=== PATIENT | female | born 2000 | race Caucasian/White ===

== ENCOUNTER 2018-09-14 18:08 | Emergency (ER) | payer OTHER ==
[2018-09-14 19:37] LABS: #Eosinphils 0.1 thou/uL (0.0-0.7); #Lymphocytes 1.7 thou/uL (1.20-3.40); #Monocytes 0.5 thou/uL (0.11-0.59); #Neutrophils 3.7 thou/uL (1.40-6.50); %Basophils 0.4 % (0.0-1.0); %Lymphocytes 28.4 % (28.0-48.0); %Monocytes 8.2 % (0.0-4.0); Hemoglobin 14.7 g/dL (12.0-16.0); Mean Corpuscular HGB CONC 33.6 g/dL (32.0-36.0); Mean Corpuscular Hemoglobin 32.7 pg (25.0-35.0); Mean Corpuscular Volume 97.3 fL (78.0-98.0); Platelet Count 204 thou/uL (130-400); Red Blood Cell (RBC) Count 4.49 mill/uL (4.00-5.20)
[2018-09-14 19:55] LABS: ALT (SGPT) 11 U/L (8-55); AST (SGOT) 17 U/L (5-34); Alkaline Phosphatase 68 U/L (40-150); Anion Gap 12 mmol/L (10-20); BUN (Urea Nitrogen) 8 mg/dL (7.0-18.7); Bilirubin, Total 0.3 mg/dL (0.2-1.2); Calc. Creatinine Clearance 0 mL/min (70-130); Carbon Dioxide 28 mmol/L (22-29); Chloride 104 mmol/L (98-107); Estimated GFR-MDRD 88; Globulin 3.4 g/dL (2.4-3.5); Glucose 85 mg/dL (70-105); Potassium 3.8 mmol/L (3.5-5.1); Protein, Total 8.4 g/dL (6.0-8.3); Sodium 140 mmol/L (136-145)
[2018-09-14 20:19] LABS: Bilirubin Negative (Negative); Blood, Urine Negative (Negative); Clarity CLEAR (Clear); Glucose, Urine (Dipstick) Negative (Negative); Leukocyte Negative (Negative); Nitrite Negative (Negative); Protein, Urine (Dipstick) Negative (Neg-Trace); Specific Gravity, Urine 1.005 (1.002-1.036); Urobilinogen 0.2 mg/dL (0.2-1.0)
[2018-09-14 20:28] LABS: Pregnancy Test - Urine (BHCG) Negative (Negative); Pregu Control Background? CLEAR/WHITE (CLR/WHITE); Pregu Control Bar Appear? YES (CONTROL BAR); Specific Gravity 1.005 (1.002-1.036)
== END 2018-09-14 20:00 | disposition home or self-care (01) ==
LOC: ERS 18:08
DX: R55 Syncope and collapse (principal)
CPT/HCPCS: 36415; 80053; 81003; 81025; 85025; 93005